=== PATIENT | female | born 1990 | race Two or more races ===

== ENCOUNTER 2016-09-18 10:26 | Observation (INO) | payer OTHER ==
--- NOTE | ~2016-09-18 | OR ---
Unit #: [id number] #: [id number] Patient: TONYA JEONG [id number] [address] [place], [place] [address] [id number] MR#: [id number] NAME: TONYA JEONG ROOM: 230 Date of Procedure: 09/18/2016 Admission Date: 09/18/2016 Surgeon: Franco Dean Jr., M.D. : 1990 Attending Physician: Franco Dean Jr., M.D. Primary Care Physician: [facility] OPERATIVE REPORT INDICATIONS FOR OPERATION The patient is a 25-year-old black female, who presented to the emergency room complaining of less than 24 hours of nausea, vomiting, and periumbilical pain now that shifted to the right lower quadrant. She has markedly elevated white blood cell count of 18,[address] scan with evidence of dilated appendix compatible with acute nonperforated appendicitis without an abscess. The patient brought to the operating room at this time for laparoscopic appendectomy. She understands the procedure including the risks and consents. PREOPERATIVE DIAGNOSIS Acute nonperforated appendicitis. POSTOPERATIVE DIAGNOSIS Acute nonperforated appendicitis, noting early acute appendicitis with some purulence around the area of the appendix. ANESTHESIA General with endotracheal intubation. PROCEDURES PERFORMED Diagnostic laparoscopy and laparoscopic appendectomy. DESCRIPTION OF PROCEDURE The patient was positioned in supine position. After being anesthetized and intubated, she was prepped and draped in routine fashion for diagnostic laparoscopy and laparoscopic appendectomy. A small infraumbilical incision was made approximately a 1 cm in length and this was carried down to the fascia. The fascia was lifted along with the umbilicus with a towel clip, and a Veress needle introduced into the abdomen. The abdomen was then inflated with CO2 gas. A 5-mm port was introduced into the abdomen followed by the camera. There was no evidence of any injury related to introduction of the port of the Veress needle. Brief intra-abdominal exploration was carried out. The patient noted to have a congested appearing dilated appendix without perforation, also fairly large uterus compatible with her recent . There was a small amount of purulence at the base of the appendix, but no free perforation. A 12 mm port was placed at the right of the upper midline and a 5-mm port nursing home between the umbilicus and suprapubic area under direct visualization. The appendix was then mobilized and a window created at the base of the appendix and using the blue stapler with 3.5 mm herman, the base was stapled and transected. The mesoappendix was Unit #: [id number] #: [id number] Patient: TONYA JEONG stapled and transected with vascular load and the appendix placed in EndoCatch bag and brought out through the larger port site. The port was replaced. The right lower quadrant was checked with a sponge being packed down in the area. There was no evidence of any bleeding from either staple line. No evidence of any leaks. The sponge was then removed. Sponge count was correct x3. The fascia in the larger port site was approximated with a neoClose technique. CO2 was expressed from the abdomen. The ports were removed. There was no evidence of any bleeding from the port sites. The port sites were injected with 0.5% Marcaine with epinephrine and the wounds were irrigated. After hemostasis achieved with Bovie cautery, skin edges were approximated with stainless-steel skin clips with skin stapling device. Sterile dressings were applied externally. Estimated blood loss less than 50 mL. The patient received less than 1000 mL crystalloid solution during the procedure. Sponges and instruments counts were correct x3. No drains used. No complications. The patient was taken to the recovery room with stable vital signs in satisfactory condition. Dictated by... Franco Dean Jr., MMatt CHAMBERLAIN/nely TD: 09/19/2016 01:27 JOB #: [id number] OPERATIVE REPORT Page 1 of 1 X Franco Dean MD PROCEDURE OPERATIVE NOTE
--- NOTE | ~2016-09-18 | CO ---
Unit #: [id number] #: [id number] Patient: TONYA JEONG [id number] [facility]. [place], [place] [address] [id number] I MR#: [id number] NAME: TONYA JEONG ROOM: 230 Age: 25 Sex: F Admission Date: 09/18/2016 : 1990 Attending Physician: Franco Dean Jr., M.D. Primary Care Physician: [facility] CONSULTATION REPORT CHIEF COMPLAINT Right lower quadrant abdominal pain with nausea and vomiting. HISTORY OF PRESENT ILLNESS The patient is a 25-year-old black female from the [facility], who has been there for some time, who started getting sick yesterday and developed more progressive periumbilical pain with shifting pain to the right lower quadrant. She has had associated nausea and vomiting. She has had a recent approximately 3 to 4 weeks ago. She has had no fever and no chills, but now the pain mostly in the right lower quadrant of her abdomen. PAST MEDICAL HISTORY Serious illnesses, none. PAST SURGICAL HISTORY She had a and as noted above. MEDICATIONS She is on no home medications. ALLERGIES None known. TRANSFUSION None in the past. FAMILY HISTORY Noncontributory according to the patient. SOCIAL HISTORY The patient is single, nonsmoker, nondrinker. Has normal good appetite. No recent weight change. IMMUNIZATIONS Up to date. REVIEW OF SYSTEMS Ten system review has been performed, which is not remarkable except for that noted in the present illness. PHYSICAL EXAMINATION VITAL SIGNS: Temperature on admission 99.1, pulse 104, respirations 16, blood pressure 104/78. Unit #: [id number] #: [id number] Patient: TONYA JEONG GENERAL DESCRIPTION: The patient is a well-developed thin 25-year-old black female, in no acute distress. HEENT: Not remarkable. NECK: Supple. CHEST: There is equal bilateral expansion with bilateral equal breath sounds. LUNGS: Clear bilaterally. HEART: Regular rhythm without murmurs or gallops. There is no evidence of cardiomegaly clinically. ABDOMEN: Soft, moderately tender in the right lower quadrant with some guarding without rebound. Active bowel sounds present. No evidence of ascites or hernias. EXTREMITIES: Full range of motion without limitation. There is no evidence of peripheral edema. BACK: There is no CVA tenderness. NEUROLOGIC: Grossly intact. DIAGNOSTIC STUDIES LABORATORY RESULTS: White blood cell count elevated at 18,000. IMAGING STUDIES: Her CT scan revealed a dilated appendix compatible with acute appendicitis, probably nonperforated. No evidence of any abscess. IMPRESSION The patient most likely has acute nonperforated appendicitis. Plan will be to go ahead with laparoscopic appendectomy, possible open. I have discussed the surgery including the risks, including that of infection, staple line leak, abscess formation, and intra-abdominal organ injury, and the patient consents. Dictated by... Franco Dean Jr., MHaritha. BULMARO/nely TD: 09/19/2016 01:41 JOB #: [id number] CONSULTATION REPORT Page 1 of 1 X Franco Dean MD X CONSULTATION REPORT
--- NOTE | ~2016-09-18 | CT2 ---
[facility] A Service of [facility] RADIOLOGY TEXT RESULTS PATIENT: TONYA JEONG LOCATION: A 230-01 : [birth year] UNIT #: [id number] AGE: [address]: Franco Dean MD SEX: F ORDER DR: [id number] [facility] [address] [place], [place] [address] [id number] I MR#: [id number] Acc #: [id number] NAME: TONYA JEONG : 1990 SEX: F STUDY DATE/TIME: 09/18/2016 15:12 UNIT: C2A ROOM: 230 STUDY DESCRIPTION: CT Abd and Pelv W Cont Attending Physician: Franco Dean Jr., M.D. Ordering Physician: Silvino Conklin D.O. [facility] RE[facility] This report is preliminary unless electronic signature is present EXAM CT of the abdomen and pelvis with IV contrast media HISTORY Abdominal pain, nausea and vomiting since yesterday. TECHNIQUE Axial imaging of the abdomen and pelvis was obtained with IV contrast media. This CT exam was performed with one or more of the following radiation dose reduction techniques: Automatic exposure control, adjustment of mA and/or kV according to patient size, and iterative reconstruction. FINDINGS Lung bases are clear. Liver, gallbladder, spleen, adrenal glands, pancreas and both kidneys are normal. No dilated or thickened loops of bowel are seen in the upper abdomen. Scans through the upper pelvis show a massively dilated appendix, measuring about 14 mm in greatest diameter, with surrounding inflammation. There is some adjacent edema in the cecal wall. Uterus is deviated slightly to the left of midline. Bladder is unremarkable. No pelvic masses or fluid collections are seen. CONCLUSION 1. Massively dilated appendix measuring up to 1.4 cm in diameter with surrounding inflammation, consistent with acute appendicitis. Dictated by... Kody Karimi M.D. THIS IS AN ELECTRONICALLY VERIFIED REPORT [facility] A Service of [facility] RADIOLOGY TEXT RESULTS PATIENT: TONYA JEONG LOCATION: A 230-01 : [birth year] UNIT #: [id number] AGE: [address]: Franco Dean MD SEX: F ORDER DR: Kody Karimi M.D. at 09/19/2016 7:13 AM PRISCILLA/ivonne TD: 09/19/2016 03:02 JOB #: [id number] MEDICAL IMAGING REPORT Page 1 of 1 COPY
--- NOTE | ~2016-09-18 | US98 ---
[facility] A Service of [facility] RADIOLOGY TEXT RESULTS PATIENT: TONYA JEONG LOCATION: C2Delicia : [birth year] UNIT #: [id number] AGE: [address]: Franco Dean MD SEX: F ORDER DR: [id number] [facility] [address] [place], [place] [address] [id number] MR#: [id number] Acc #: [id number] NAME: TONYA JEONG : 1990 SEX: F STUDY DATE/TIME: 09/18/2016 11:20 UNIT: LEONID ROOM: STUDY DESCRIPTION: US Pelvic Non-OB Complete Attending Physician: Silvino Conklin D.O. Ordering Physician: Silvino Conklin D.O. [facility] REPORT This report is preliminary unless electronic signature is present EXAM Pelvic ultrasound INDICATIONS Pelvic pain since last night. Patient had on 08/26/2016. PROCEDURE Tee-scale and Doppler imaging of the pelvis via transabdominal and transvaginal approach. COMPARISON None FINDINGS Uterus anteverted, measures 7.5 x 4.0 x 7 cm. Endometrium measures 4 mm in thickness. Right ovary measures 4.1 x 2.8 x 2.0 cm and shows detectable flow. The left ovary is not seen. No adnexal mass. IMPRESSION Left ovary is not well seen on this study. Otherwise, negative pelvic ultrasound. Dictated by... Ruben Reza M.D. THIS IS AN ELECTRONICALLY VERIFIED REPORT Ruben Reza M.D. at 09/19/2016 7:07 AM ROSAS/magui TD: 09/18/2016 15:51 JOB #: [id number] [facility] A Service of [facility] RADIOLOGY TEXT RESULTS PATIENT: TONYA JEONG LOCATION: Dilshad : [birth year] UNIT #: [id number] AGE: [address]: Franco Dean MD SEX: F ORDER DR: MEDICAL IMAGING REPORT Page 1 of 1 COPY
[2016-09-18 11:03] LABS: BASOPHIL# 0.1 X10e3 (0-0.3); BASOPHIL% 0.3 % (0-2.5); HEMATOCRIT 40.9 % (35.0-45.0); HEMOGLOBIN 13.4 gm/dL (12.0-16.0); LYMPHOCYTE# 1.6 X10e3 (1.0-3.5); LYMPHOCYTE% 8.7 % (17.0-45.0); MEAN CELL VOLUME 91.2 FL (83-96); MEAN CORPUSCULAR HEMOGLOBIN 29.8 PG (28-34); MEAN CORPUSCULAR HGB CONC 32.7 g/dL (30-36); MEAN PLATELET VOLUME 8.5 FL (6.5-11.5); MONOCYTE# 0.8 X10e3 (0-1.0); MONOCYTE% 4.6 % (3.0-12.0); NEUTROPHIL% 86.4 % (40-75); PLATELET COUNT 217 X10e3 (140-420); RED BLOOD COUNT 4.48 X10e (3.90-5.30); RED CELL DISTRIBUTION WIDTH 13.2 % (11.0-15.5); WHITE BLOOD COUNT 18.5 X10e3 (4.0-10.5)
[2016-09-18 11:06] LABS: DIFF IND YES
[2016-09-18 11:12] LABS: URINE SOURCE CLEAN CATCH
[2016-09-18 11:18] LABS: URINE APPEARANCE CLOUDY; URINE BILIRUBIN NEG (NEG); URINE BLOOD 2+ (NEG); URINE COLOR DK YELLOW; URINE GLUCOSE NEG (NEG); URINE KETONE NEG (NEG); URINE LEUKOCYTE ESTERASE 2+ (NEG); URINE NITRATE NEG (NEG); URINE PROTEIN TRACE (NEG); URINE SPECIFIC GRAVITY 1.032 (1.003-1.035)
[2016-09-18 11:19] LABS: CULTURE INDICATED? YES; URINE BACTERIA AUWI 2+ (NEGATIVE)
[2016-09-18 11:25] LABS: PLATELET ESTIMATE NORMAL (NORMAL); RBC NORMAL YES
[2016-09-18 11:26] LABS: ALBUMIN SERUM 3.8 g/dL (3.5-5.0); BILIRUBIN, DIRECT 0.1 mg/dL (0.0-0.2); BILIRUBIN,INDIRECT 0.3 mg/dL (0.0-0.9); BILIRUBIN,TOTAL 0.4 mg/dL (0.2-2.0); BUN/CREATININE RATIO 18.33; CALCIUM SERUM 8.8 mg/dL (8.4-10.2); CREATININE SERUM 0.6 mg/dL (0.6-1.4); GLOM FILT RATE Estimated 125.8 mL/min (>60); POTASSIUM 3.7 mmol/L (3.5-5.1); PROTEIN TOTAL SERUM 7.2 g/dL (6.0-8.3)
[2016-09-18 11:33] LABS: URINE MUCUS PRESENT
[2016-09-18 11:35] LABS: URINE SQUAMOUS EPITHELIAL CELL MODERATE /[HPF]
[2016-09-18] MEDS ORDERED: NO MEDICATIONS (21:13)
[2016-09-19 06:52] LABS: HEMATOCRIT 33.6 % (35.0-45.0); MEAN CELL VOLUME 92.8 FL (83-96); MEAN CORPUSCULAR HEMOGLOBIN 30.2 PG (28-34); MEAN CORPUSCULAR HGB CONC 32.5 g/dL (30-36); MEAN PLATELET VOLUME 9.1 FL (6.5-11.5); RED BLOOD COUNT 3.62 X10e (3.90-5.30); RED CELL DISTRIBUTION WIDTH 13.2 % (11.0-15.5)
[2016-09-19 06:59] LABS: HEMOGLOBIN 10.9 gm/dL (12.0-16.0); WHITE BLOOD COUNT 7.5 X10e3 (4.0-10.5)
[2016-09-19] MEDS ORDERED: HYDROCODON-ACE1 EAC5 PO (10:05)
== END 2016-09-19 11:39 | disposition home or self-care (01) | DRG 769 ==
LOC: CED 10:26 → C2A 16:00 → CED 16:30 → C2A 16:30
PROVIDERS: Emergency Medicine; Surgery
PROC: 0DTJ4ZZ Resection of Appendix, Percutaneous Endoscopic Approach (ICD-10-PCS; principal; 2016-09-18 17:00)
DX: O99.63 Diseases of the digestive system complicating the puerperium (principal); K35.80 Unspecified acute appendicitis
CPT/HCPCS: 36415; 74177; 76830; 76856; 80048; 80076; 81003; 83690; 84703; 85025; 85027; 87086; 88304; 94010; 96361; 96365; 96366; 96374; 96375; 96376; 99285; G0378; J0131; J0330; J1885; J2250; J2270; J2405; J2543; J2550; J2710; J3010; Q9967